=== PATIENT | female | born 1950 | race Hispanic/Latino ===

== ENCOUNTER 2017-04-25 08:55 | Day surgery (SDC) | payer MEDICARE, OTHER ==
--- NOTE | 2017-04-25 10:05 | Anesthesia Consultation ---
Anesthesia Consult and Med Hx Date of service: 04/25/17 - Airway Anesthetic Teeth Evaluation: Poor ROM Head & Neck: Adequate Mental/Hyoid Distance: Adequate Mallampati Class: Class II Intubation Access Assessment: Probably Good - Pulmonary Exam CTA: Yes - Cardiac Exam Cardiac Exam: RRR - Pre-Operative Health Status ASA Pre-Surgery Classification: ASA3 Proposed Anesthetic Plan: General - Pulmonary Hx Smoking: Yes (quit 2014) Hx Asthma: No SOB: Yes (with exertion) COPD: Yes (use 3Liter oxygen at home nasal canula) Hx Pneumonia: Yes Hx Sleep Apnea: No - Cardiovascular System Hx Hypertension: Yes Hx Heart Attack/AMI: Yes (cardiac cath 2013, no stents) Hx Angina: No Hx Cardia Arrhythmia: Yes (AF eliquis held for 11/01.) - Central Nervous System Hx Seizures: No CVA: No Hx Back Pain: Yes Hx Psychiatric Problems: Yes (claustrophobic) - Gastrointestinal Hx Gastroesophageal Reflux Disease: Yes - Endocrine Hx End Stage Renal Disease: No Hx Liver Disease: No Hx Non-Insulin Dependent Diabetes: No Hx Thyroid Disease: No - Hematic Hx Anemia: No
--- NOTE | 2017-04-25 10:06 | Anesthesia Day of Surgery ---
Anesthesia Day of Surgery - Day of Surgery Patient Examined: Yes Patient H&P Reviewed: Yes Patient is NPO: Yes Beta Blockers: Yes
[2017-04-25] MEDS ORDERED: DIPRIVAN 10 MG/ML IV ONE ×4 (10:09→11:21)
[2017-04-25] MEDS ORDERED: XYLOCAINE MPF 2% ONE (10:11)
[2017-04-25] MEDS ORDERED: DECADRON ONE (10:33)
[2017-04-25] MEDS ORDERED: ZOFRAN ONE (10:33)
[2017-04-25] MEDS ORDERED: NACL 0.9% 1000 ML 1,000 ML IV SCH ×2 (11:00→12:00)
[2017-04-25 11:14] LABS: Blood Urea Nitrogen 16 mg/dL (7-17)
[2017-04-25 11:25] LABS: INR 0.93 (0.87-1.13)
[2017-04-25 11:26] LABS: Partial Thromboplastin Time 32.6 Sec. (24.2-36.6)
[2017-04-25 11:40] VITALS: BP 122/69
[2017-04-25] MEDS ORDERED: TYLENOL ONE (12:41)
[2017-04-25] MEDS ORDERED: TYLENOL PO ONE (14:13)
== END 2017-04-25 13:30 | disposition home or self-care (01) ==
LOC: CATHLABREC 08:55 → EDSTATUS 09:30 → CATHLABREC 13:30
PROVIDERS: ATTEND Family Medicine
DX: T14.8 Other injury of unspecified body region (principal); J44.9 Chronic obstructive pulmonary disease, unspecified; I10 Essential (primary) hypertension; F40.240 Claustrophobia; K21.9 Gastro-esophageal reflux disease without esophagitis; Z87.891 Personal history of nicotine dependence; Z87.01 Personal history of pneumonia (recurrent); Z99.81 Dependence on supplemental oxygen; Z86.79 Personal history of other diseases of the circulatory system; Z88.8 Allergy status to other drugs, medicaments and biological substances; Z88.0 Allergy status to penicillin; Z88.1 Allergy status to other antibiotic agents; Z91.09 Other allergy status, other than to drugs and biological substances; Z53.8 Procedure and treatment not carried out for other reasons; X58.XXXA Exposure to other specified factors, initial encounter
CPT/HCPCS: 36415; 82565; 84520; 85610; 85730; J2704; J7030; J1100; J2405